=== PATIENT | female | born 1970 | race Caucasian/White ===

== ENCOUNTER 2018-06-14 01:18 | Emergency (ER) | payer MEDICAID ==
[~2018-06-14] VITALS: Ht 167.6 cm; Wt 90.7 kg
[~2018-06-14 01:18] MED LIST: ALBU0.084 NEB; CETI10CH PO; FLUT50SP13; HYDR-4683 PO; MOME200A INH; RANI150C11 PO
[2018-06-14 01:50] VITALS: BP 129/74
[2018-06-14] MEDS ORDERED: IPRATROPIUM BROM 0.5 MG/2.5ML INH SOL NEB ONE ×2 (02:00→03:45)
[2018-06-14] MEDS ORDERED: ALBUTEROL SULF 2.5 MG/0.5ML(0.5%) NEB SOLN NEB ONE ×2 (02:00→03:45)
[2018-06-14] MEDS ORDERED: methylPREDNISolone SOD SUCC 125 MG/2 ML VL IM ONE (03:45)
[2018-06-14] MEDS ORDERED: cefTRIAXone SOD 1,000 MG VL IM ONE (03:45)
== END 2018-06-14 04:35 | disposition home or self-care (01) ==
LOC: ER 01:21
DX: J45.909 Unspecified asthma, uncomplicated (principal)
CPT/HCPCS: 71046; 93005; 94640; 96372; 99284; J0696; J2930; J7611; J7644